=== PATIENT | male | born 1970 | race Two or more races ===

== ENCOUNTER 2021-10-24 11:08 | Emergency (ER) | payer SELFPAY ==
[~2021-10-24] VITALS: Ht 165.1 cm; Wt 120.2 kg
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
[2021-10-24 11:28] VITALS: BP_SYST 128
[2021-10-24] MEDS ORDERED: LIDOCAINE 1% 10 MG/ML, 20 ML MDV INJ ONE (11:45)
--- NOTE | 2021-10-24 12:00 | NUR ---
ER physician at bedside assessing pt. Laceration tray at [facility].
[2021-10-24] MEDS ORDERED: BACI15OI13 TP (12:11)
[2021-10-24] MEDS ORDERED: IBUP-1969 PO (12:11)
[2021-10-24 12:14] VITALS: BP_SYST 132
--- NOTE | 2021-10-24 12:20 | NUR ---
Patient given written and verbal discharge instructions and verbalizes understanding. ER MD discussed with patient the results and treatment provided. Patient in stable condition. ID arm band removed. Rx of given. Patient educated on pain management and to follow up with PMD. Opportunity for questions provided and answered. Medication side effect fact sheet provided.
== END 2021-10-24 12:14 | disposition home or self-care (01) ==
LOC: SED 11:08
DX: S01.111A Laceration without foreign body of right eyelid and periocular area, initial encounter (principal); W18.39XA Other fall on same level, initial encounter; Y93.89 Activity, other specified; Y92.89 Other specified places as the place of occurrence of the external cause; Y99.8 Other external cause status
CPT/HCPCS: 99282